=== PATIENT | male | born 1970 | race Two or more races ===

== ENCOUNTER 2016-10-30 06:30 | Emergency (ER) | payer OTHER ==
[~2016-10-30] VITALS: Ht 190.5 cm; Wt 104.3 kg
[~2016-10-30 06:30] MED LIST: AMOX500C2
[2016-10-30 06:45] VITALS: BP 135/87
[2016-10-30 08:03] LABS: Urine RBC None Seen /hpf (0 - 3)
[2016-10-30 08:12] LABS: Basophils # (auto) 0 uL; Basophils % (auto) 0.5 % (0.0-2.0); CONDITION Y; Eosinophils # (auto) 0.2 uL; Eosinophils % (auto) 3.5 % (0.0-7.0); Hemoglobin 14.8 g/dL (13.5-17.5); Lymphocytes # (auto) 1.5 uL; Lymphocytes % (auto) 29.9 % (10.0-50.0); Mean Corpuscular Hemoglobin 31.2 pg (28.0-32.0); Mean Corpuscular Hgb Conc. 34.4 g/dL (32.0-36.0); Mean Corpuscular Volume 90.8 fL (80.0-100.0); Mean Platelet Volume 9.2 fL (7.4-10.4); Monocytes # (auto) 0.6 uL; Monocytes % (auto) 11.5 % (0.0-12.0); Neutrophils # (auto) 2.8 uL; Neutrophils % (auto) 54.6 % (37.0-80.0); Platelet Count (auto) 208 10^3/uL (140-450); Red Cell Distribution Width 13.1 % (11.6-16.0); White Blood Cell 5.2 10^3/uL (4.4-10.8)
[2016-10-30 08:15] LABS: Urine Bilirubin Negative (Negative); Urine Blood Negative /uL (Negative); Urine Color Yellow (Yellow); Urine Glucose Normal (Normal); Urine Ketone Negative (Negative); Urine Nitrite Negative (Negative); Urine Urobilinogen Normal (Negative)
[2016-10-30 08:26] LABS: Albumin 3.7 g/dL (3.4-5.0); Calcium 8.1 mg/dL (8.5-10.1); Potassium 3.8 mmol/L (3.5-5.1)
[2016-10-30 08:29] LABS: Bilirubin, Total 0.7 mg/dL (0.2-1.0); Total Protein 7.6 g/dL (6.4-8.2)
== END 2016-10-30 09:18 | disposition home or self-care (01) ==
LOC: ER 06:30
DX: J11.1 Influenza due to unidentified influenza virus with other respiratory manifestations (principal); I25.10 Atherosclerotic heart disease of native coronary artery without angina pectoris; Z86.19 Personal history of other infectious and parasitic diseases
CPT/HCPCS: 36415; 80053; 80307; 81001; 85025; 93005

== ENCOUNTER 2019-11-19 23:05 | Inpatient (IN) | payer OTHER ==
[~2019-11-19] VITALS: Ht 190.5 cm; Wt 95.2 kg
[2019-11-19 23:47] LABS: Basophils # (auto) 0 10 ^3/uL (0-0.2); Basophils % (auto) 0.5 % (0.0-2.0); Eosinophils # (auto) 0.2 10 ^3/uL (0-0.8); Hemoglobin 14.4 g/dL (13.5-17.5); Lymphocytes # (auto) 1.5 10 ^3/uL (0.4-5.4); Lymphocytes % (auto) 27.7 % (10.0-50.0); Mean Corpuscular Hemoglobin 29.3 pg (28.0-32.0); Mean Corpuscular Hgb Conc. 34.4 g/dL (32.0-36.0); Mean Corpuscular Volume 85.1 fL (80.0-100.0); Monocytes # (auto) 0.6 10 ^3/uL (0-1.3); Monocytes % (auto) 10.8 % (0.0-12.0); Neutrophils # (auto) 3.1 10 ^3/uL (1.6-8.6); Nucleated Red Blood Cells % 0.1 %; Platelet Count (auto) 207 10^3/uL (140-450); Red Blood Cells 4.93 10^6/uL (4.5-5.90); Red Cell Distribution Width 13.6 % (11.8-14.3); White Blood Cell 5.4 10^3/uL (4.4-10.8)
[2019-11-20 00:05] LABS: Anion Gap 5 (5-15); Blood Urea Nitrogen 10 mg/dL (7-18); Calcium 8.3 mg/dL (8.5-10.1); Carbon Dioxide 29 mmol/L (21-32); Chloride 102 mmol/L (98-107); Glucose 96 mg/dL (74-106); Potassium 3.8 mmol/L (3.5-5.1); Sodium 136 mmol/L (136-145)
[2019-11-20 00:11] LABS: Alanine Aminotransferase 57 U/L (16-61); Alkaline Phosphatase 64 U/L (45-117); Aspartate Aminotransferase 30 U/L (15-37); BUN/Creatinine Ratio 12.2; Bilirubin, Total 0.7 mg/dL (0.2-1.0); GFR African American 128 mL/min; GFR Non-African American 106 mL/min; Total Protein 7.3 g/dL (6.4-8.2)
[2019-11-20 00:19] LABS: INR 1.15 (0.9-1.15); Partial Thromboplastin Time 30.2 sec (23.0-31.2)
[2019-11-20] MEDS ORDERED: SODIUM CHLORIDE 0.9% 1,000 ML IV ONE (01:00)
[2019-11-20] MEDS ORDERED: MORPHINE SULF INJ 2 MG/ML SYRINGE 1ML IV PRN (07:30)
[2019-11-20] MEDS ORDERED: NITROGLYCERIN 0.4 MG SL TAB SL PRN (07:30)
[2019-11-20] MEDS ORDERED: TEMAZEPAM 15 MG CAP PO PRN (07:30)
[2019-11-20 09:03] LABS: Alcohol, Urine < 3.0 mg/dL (0-10); Amphetamine Screen, Urine NEGATIVE (NEGATIVE); Barbiturate Scree,Urine NEGATIVE (NEGATIVE); Benzodiazephine Screen, Urine NEGATIVE (NEGATIVE); Cannabinoid Screen, Urine NEGATIVE (NEGATIVE)
[2019-11-20 10:17] VITALS: BP 107/80
[2019-11-20] MEDS: FAMOTIDINE 20 MG TAB PO SCH ×2 (10:23→21:09)
[2019-11-20] MEDS: ENOXAPARIN SOD 40 MG/0.4 ML SYRINGE SC SCH (10:23)
[2019-11-20] MEDS: ASPirin 81 mg TAB PO SCH (10:23)
[2019-11-20 10:40] VITALS: BP 107/80
[2019-11-20 12:03] LABS: Cocaine Screen, Urine NEGATIVE (NEGATIVE); Opiate Scree,Urine NEGATIVE (NEGATIVE); Phencyclidine Screen, Urine NEGATIVE (NEGATIVE)
[2019-11-20 13:46] VITALS: BP 125/86
[2019-11-20] MEDS: cloNIDine HCL 0.1 MG TAB PO PRN ×2 (16:18→17:50)
[2019-11-20 16:39] VITALS: BP 161/96
[2019-11-20 21:00] VITALS: BP 128/81
[2019-11-20] MEDS: ATORVASTATIN 20 MG TAB PO SCH (21:09)
[2019-11-21 05:00] VITALS: BP 122/74
[2019-11-21 06:51] LABS: Basophils # (auto) 0 10 ^3/uL (0-0.2); Basophils % (auto) 0.5 % (0.0-2.0); Eosinophils # (auto) 0.1 10 ^3/uL (0-0.8); Eosinophils % (auto) 2.2 % (0.0-7.0); Hematocrit 45.3 % (41.0-53.0); Hemoglobin 16.4 g/dL (13.5-17.5); Lymphocytes % (auto) 21.8 % (10.0-50.0); Mean Corpuscular Hemoglobin 30.8 pg (28.0-32.0); Mean Corpuscular Hgb Conc. 36.2 g/dL (32.0-36.0); Mean Corpuscular Volume 85.2 fL (80.0-100.0); Monocytes # (auto) 0.4 10 ^3/uL (0-1.3); Monocytes % (auto) 9.7 % (0.0-12.0); Neutrophils # (auto) 2.9 10 ^3/uL (1.6-8.6); Neutrophils % (auto) 65.8 % (37.0-80.0); Platelet Count (auto) 202 10^3/uL (140-450); Red Blood Cells 5.32 10^6/uL (4.5-5.90); Red Cell Distribution Width 13.5 % (11.8-14.3); White Blood Cell 4.4 10^3/uL (4.4-10.8)
[2019-11-21 07:04] LABS: BUN/Creatinine Ratio 10.6; Calcium 9.3 mg/dL (8.5-10.1); Potassium 4.2 mmol/L (3.5-5.1)
[2019-11-21] MEDS ORDERED: ADENOSINE 93 MG in GIVE UN-DILUTED 0 ML IV STA (08:19)
[2019-11-21 09:00] VITALS: BP 145/77
[2019-11-21] MEDS: ACETAMINOPHEN 325 MG TAB PO PRN (10:12)
[2019-11-21] MEDS: ASPirin 81 mg TAB PO SCH (11:16)
[2019-11-21] MEDS: FAMOTIDINE 20 MG TAB PO SCH ×2 (11:16→20:36)
[2019-11-21] MEDS: ENOXAPARIN SOD 40 MG/0.4 ML SYRINGE SC SCH (11:17)
[2019-11-21 13:00] VITALS: BP 136/91
[2019-11-21] MEDS ORDERED: LISINOPRIL 10 MG TAB PO ONE ×2 (13:15→16:45)
[2019-11-21 16:42] VITALS: BP 157/98
[2019-11-21] MEDS: ATORVASTATIN 20 MG TAB PO SCH (20:36)
[2019-11-21 21:00] VITALS: BP 133/86
[2019-11-22 05:00] VITALS: BP 108/65
[2019-11-22 06:23] LABS: Cholesterol 96 mg/dL (< 200); HDL Cholesterol 31 mg/dL (40-59); LDL Cholesterol 59 mg/dL (< 100); Triglycerides 114 mg/dL (< 150)
[2019-11-22 09:00] VITALS: BP 115/68
[2019-11-22] MEDS ORDERED: LISINOPRIL 10 MG TAB PO SCH (10:00)
[2019-11-22] MEDS: ENOXAPARIN SOD 40 MG/0.4 ML SYRINGE SC SCH (10:00)
[2019-11-22] MEDS: FAMOTIDINE 20 MG TAB PO SCH ×2 (10:00→22:22)
[2019-11-22] MEDS: ASPirin 81 mg TAB PO SCH (10:00)
[2019-11-22] MEDS: LISINOPRIL 10 MG TAB PO SCH (10:01)
[2019-11-22 13:00] VITALS: BP 138/90
[2019-11-22] MEDS: ACETAMINOPHEN 325 MG TAB PO PRN ×2 (14:11→22:31)
[2019-11-22] MEDS ORDERED: cefTRIAXone 1GM/50ML D5W 50 ML IV ONE (14:45)
[2019-11-22] MEDS ORDERED: VANCOMYCIN PER PHARMACY 0 MG IV SCH (14:45)
[2019-11-22] MEDS ORDERED: VANCOMYCIN 1GM/250ML 250 ML IV ONE (15:30)
[2019-11-22] MEDS ORDERED: KETOROLAC TROMETH 30 MG/ML 1ML VIAL IV ONE (16:30)
[2019-11-22 16:35] VITALS: BP 119/75
[2019-11-22] MEDS: ONDANSETRON HCL 4 MG/2 ML VIAL IV PRN (20:49)
[2019-11-22 22:00] VITALS: BP 102/56
[2019-11-22] MEDS ORDERED: DexAMETHasone INJECTION 10 MG in D5W 5% 50 ML IV SCH (22:00)
[2019-11-22] MEDS: SODIUM CHLORIDE 0.9% 1,000 ML IV SCH (22:22)
[2019-11-22] MEDS: ATORVASTATIN 20 MG TAB PO SCH (22:22)
[2019-11-22] MEDS: VANCOMYCIN 1GM/250ML 250 ML IV SCH (22:23)
[2019-11-22] MEDS: METOCLOPRAMIDE HCL 10 MG TAB PO SCH (22:23)
[2019-11-23 01:09] LABS: INR 6.71 (0.9-1.15)
[2019-11-23] MEDS: VANCOMYCIN 1GM/250ML 250 ML IV SCH (04:50)
[2019-11-23 05:00] VITALS: BP 125/83
[2019-11-23 06:23] LABS: Basophils # (auto) 0.1 10 ^3/uL (0-0.2); Basophils % (auto) 0.6 % (0.0-2.0); Eosinophils # (auto) 0 10 ^3/uL (0-0.8); Hematocrit 45.3 % (41.0-53.0); Hemoglobin 16.6 g/dL (13.5-17.5); Lymphocytes # (auto) 0.2 10 ^3/uL (0.4-5.4); Lymphocytes % (auto) 2.2 % (10.0-50.0); Mean Corpuscular Hemoglobin 31.2 pg (28.0-32.0); Mean Corpuscular Hgb Conc. 36.7 g/dL (32.0-36.0); Mean Corpuscular Volume 84.8 fL (80.0-100.0); Monocytes # (auto) 0.5 10 ^3/uL (0-1.3); Neutrophils # (auto) 9.2 10 ^3/uL (1.6-8.6); Neutrophils % (auto) 92.2 % (37.0-80.0); Platelet Count (auto) 154 10^3/uL (140-450); Red Blood Cells 5.34 10^6/uL (4.5-5.90); Red Cell Distribution Width 13.5 % (11.8-14.3)
[2019-11-23] MEDS: METOCLOPRAMIDE HCL 10 MG TAB PO SCH ×2 (06:37→13:41)
[2019-11-23] MEDS: SODIUM CHLORIDE 0.9% 1,000 ML IV SCH ×2 (06:37→14:58)
[2019-11-23] MEDS: ACETAMINOPHEN 325 MG TAB PO PRN ×2 (06:38→13:51)
[2019-11-23 06:43] LABS: Potassium 3.7 mmol/L (3.5-5.1)
[2019-11-23 06:52] LABS: Albumin 4.1 g/dL (3.4-5.0); BUN/Creatinine Ratio 11.4; Bilirubin, Total 2.5 mg/dL (0.2-1.0); Calcium 8.4 mg/dL (8.5-10.1); Total Protein 7.7 g/dL (6.4-8.2)
[2019-11-23 09:00] VITALS: BP 109/53
[2019-11-23] MEDS ORDERED: traMADol HCL 50 MG TAB PO PRN ×2 (09:00→17:30)
[2019-11-23] MEDS ORDERED: cefTRIAXone 1GM/50ML D5W 50 ML IV SCH (09:00)
[2019-11-23] MEDS: FAMOTIDINE 20 MG TAB PO SCH ×2 (09:56→22:19)
[2019-11-23] MEDS: LISINOPRIL 10 MG TAB PO SCH (09:56)
[2019-11-23] MEDS: ASPirin 81 mg TAB PO SCH (09:56)
[2019-11-23] MEDS ORDERED: PHYTONADIONE(VitK) ORAL Susp 10mg/10ml(1mg/ml) PO ONE (10:45)
[2019-11-23 10:58] LABS: CRP High Sensitivity 5.81 mg/dL (< 0.3)
[2019-11-23 11:16] LABS: Urine Bacteria FEW /hpf (None Seen); Urine Blood Negative /uL (Negative); Urine Specific Gravity 1.023 (1.001-1.035); Urine WBC 8 /hpf (0 - 3)
[2019-11-23 12:28] LABS: INR 1.27 (0.9-1.15); Partial Thromboplastin Time 27.5 sec (23.0-31.2)
[2019-11-23 13:00] VITALS: BP 134/73
[2019-11-23 17:00] VITALS: BP 138/59
[2019-11-23] MEDS ORDERED: KETOROLAC TROMETH 30 MG/ML 1ML VIAL IV ONE (17:15)
[2019-11-23] MEDS ORDERED: OXYCODONE W/ ACETAMINOPHEN 5/325MG TABLET PO PRN (17:15)
[2019-11-23] MEDS: LINEZOLID 600MG/300ML 300 ML IV SCH (17:29)
[2019-11-23 18:23] LABS: Albumin 3.4 g/dL (3.4-5.0); Calcium 7.5 mg/dL (8.5-10.1); Potassium 3.4 mmol/L (3.5-5.1)
[2019-11-23 18:27] LABS: BUN/Creatinine Ratio 11.3; Bilirubin, Total 1.5 mg/dL (0.2-1.0); Total Protein 6.6 g/dL (6.4-8.2)
[2019-11-23] MEDS: PANTOPRAZOLE 40 MG/10 ML VIAL INJ IV SCH (20:01)
[2019-11-23] MEDS: MEROPENEM 1GM IVPB 100 ML IV SCH (20:01)
[2019-11-23] MEDS: ONDANSETRON HCL 4 MG/2 ML VIAL IV PRN (20:14)
[2019-11-23 22:00] VITALS: BP 102/62
[2019-11-23] MEDS: ATORVASTATIN 20 MG TAB PO SCH (22:19)
[2019-11-23] MEDS: METOCLOPRAMIDE HCL 5MG/ml INJ 2ml VIAL IV SCH (22:19)
[2019-11-24] MEDS: SODIUM CHLORIDE 0.9% 1,000 ML IV SCH ×3 (01:45→20:45)
[2019-11-24 05:00] VITALS: BP 122/68
[2019-11-24] MEDS: LINEZOLID 600MG/300ML 300 ML IV SCH ×2 (05:43→17:36)
[2019-11-24] MEDS: METOCLOPRAMIDE HCL 5MG/ml INJ 2ml VIAL IV SCH ×3 (05:43→21:57)
[2019-11-24 08:00] VITALS: BP 127/72
[2019-11-24] MEDS: MEROPENEM 1GM IVPB 100 ML IV SCH ×2 (09:51→19:42)
[2019-11-24] MEDS: PANTOPRAZOLE 40 MG/10 ML VIAL INJ IV SCH (09:52)
[2019-11-24] MEDS: FAMOTIDINE 20 MG TAB PO SCH ×2 (09:52→22:00)
[2019-11-24] MEDS: ASPirin 81 mg TAB PO SCH (09:53)
[2019-11-24] MEDS: LISINOPRIL 10 MG TAB PO SCH (09:53)
[2019-11-24 12:46] VITALS: BP 142/71
[2019-11-24] MEDS ORDERED: SODIUM CHLORIDE 0.9% 1,000 ML IV SCH (14:30)
[2019-11-24] MEDS ORDERED: LACTULOSE 20Gm/30ML SOLN PO PRN (14:45)
[2019-11-24 16:45] VITALS: BP 123/66
[2019-11-24 21:03] LABS: INR 1.12 (0.9-1.15)
[2019-11-24 22:00] VITALS: BP 136/74
[2019-11-24] MEDS: DOCUSATE SOD 100 MG CAP PO SCH (22:00)
[2019-11-24] MEDS ORDERED: DexAMETHasone INJECTION 10 MG in D5W 5% 50 ML IV ONE (23:00)
[2019-11-24] MEDS ORDERED: DexAMETHasone SOD PHOS 4 MG/1ML SDV INJ ONE (23:16)
[2019-11-25 05:00] VITALS: BP 134/82
[2019-11-25] MEDS: SODIUM CHLORIDE 0.9% 1,000 ML IV SCH ×2 (05:27→14:07)
[2019-11-25] MEDS: LINEZOLID 600MG/300ML 300 ML IV SCH ×2 (05:27→17:40)
[2019-11-25 06:34] LABS: Basophils # (auto) 0 10 ^3/uL (0-0.2); Eosinophils # (auto) 0 10 ^3/uL (0-0.8); Lymphocytes # (auto) 0.6 10 ^3/uL (0.4-5.4); Monocytes # (auto) 0.3 10 ^3/uL (0-1.3); Platelet Count (auto) 142 10^3/uL (140-450)
[2019-11-25 06:36] LABS: Basophils % (auto) 0.1 % (0.0-2.0); Hematocrit 39.4 % (41.0-53.0); Hemoglobin 14.5 g/dL (13.5-17.5); Lymphocytes % (auto) 11.8 % (10.0-50.0); Mean Corpuscular Hemoglobin 30.8 pg (28.0-32.0); Mean Corpuscular Hgb Conc. 36.9 g/dL (32.0-36.0); Mean Corpuscular Volume 83.3 fL (80.0-100.0); Monocytes % (auto) 5.3 % (0.0-12.0); Neutrophils # (auto) 4.3 10 ^3/uL (1.6-8.6); Neutrophils % (auto) 82.8 % (37.0-80.0); Red Blood Cells 4.72 10^6/uL (4.5-5.90); Red Cell Distribution Width 13.6 % (11.8-14.3); White Blood Cell 5.2 10^3/uL (4.4-10.8)
[2019-11-25] MEDS: METOCLOPRAMIDE HCL 5MG/ml INJ 2ml VIAL IV SCH ×3 (06:37→22:17)
[2019-11-25 06:54] LABS: Calcium 8.7 mg/dL (8.5-10.1)
[2019-11-25 06:58] LABS: Albumin 3.7 g/dL (3.4-5.0); BUN/Creatinine Ratio 8.3; Bilirubin, Total 0.9 mg/dL (0.2-1.0); Magnesium 1.9 mg/dL (1.6-2.6); Total Protein 7.3 g/dL (6.4-8.2)
[2019-11-25] MEDS: MEROPENEM 1GM IVPB 100 ML IV SCH (08:08)
[2019-11-25 08:10] VITALS: BP 132/84
[2019-11-25 08:59] VITALS: BP 132/84
[2019-11-25] MEDS ORDERED: cefTRIAXone 1GM/50ML D5W 50 ML IV ONE (09:51)
[2019-11-25] MEDS: CEFTRIAXONE SODIUM 2 GM in D5W 5% 50 ML IV SCH ×2 (09:56→20:45)
[2019-11-25] MEDS: PANTOPRAZOLE 40 MG/10 ML VIAL INJ IV SCH (09:56)
[2019-11-25] MEDS: FAMOTIDINE 20 MG TAB PO SCH ×2 (12:10→22:16)
[2019-11-25] MEDS: ASPirin 81 mg TAB PO SCH (12:10)
[2019-11-25] MEDS: DOCUSATE SOD 100 MG CAP PO SCH ×2 (12:10→22:17)
[2019-11-25] MEDS: DexAMETHasone INJECTION 10 MG in D5W 5% 50 ML IV SCH (12:12)
[2019-11-25] MEDS: amLODIPine BESYLATE 5 MG TAB PO SCH (12:12)
[2019-11-25 13:07] VITALS: BP 131/81
[2019-11-25 16:46] VITALS: BP 132/77
[2019-11-25] MEDS: ACETAMINOPHEN 325 MG TAB PO PRN (20:46)
[2019-11-25 21:28] VITALS: BP 128/75
[2019-11-26] VITALS (7 sets, daily range): BP systolic 113–136; BP diastolic 69–78
[2019-11-26] MEDS: SODIUM CHLORIDE 0.9% 1,000 ML IV SCH ×2 (05:55→22:28)
[2019-11-26] MEDS: LINEZOLID 600MG/300ML 300 ML IV SCH (06:47)
[2019-11-26] MEDS: METOCLOPRAMIDE HCL 5MG/ml INJ 2ml VIAL IV SCH ×3 (06:47→22:27)
[2019-11-26] MEDS: CEFTRIAXONE SODIUM 2 GM in D5W 5% 50 ML IV SCH ×2 (08:21→20:30)
[2019-11-26] MEDS: FAMOTIDINE 20 MG TAB PO SCH ×2 (09:51→22:27)
[2019-11-26] MEDS: DOCUSATE SOD 100 MG CAP PO SCH ×2 (09:51→22:27)
[2019-11-26] MEDS: ASPirin 81 mg TAB PO SCH (09:51)
[2019-11-26] MEDS: amLODIPine BESYLATE 5 MG TAB PO SCH (09:51)
[2019-11-26] MEDS: PANTOPRAZOLE 40 MG/10 ML VIAL INJ IV SCH (09:52)
[2019-11-26] MEDS: DexAMETHasone INJECTION 10 MG in D5W 5% 50 ML IV SCH (11:09)
[2019-11-26] MEDS: DOXYCYCLINE 100MG/250ML 250 ML IV SCH (16:42)
[2019-11-27] VITALS (8 sets, daily range): BP systolic 92–138; BP diastolic 49–82
[2019-11-27] MEDS: DOXYCYCLINE 100MG/250ML 250 ML IV SCH ×2 (02:42→14:30)
[2019-11-27] MEDS: METOCLOPRAMIDE HCL 5MG/ml INJ 2ml VIAL IV SCH ×3 (06:28→21:39)
[2019-11-27] MEDS: CEFTRIAXONE SODIUM 2 GM in D5W 5% 50 ML IV SCH ×2 (08:43→20:28)
[2019-11-27] MEDS ORDERED: LIDOCAINE 2%HCL (LOCAL ANESTH.) INJ 20ML MDV ONE (09:54)
[2019-11-27] MEDS: DOCUSATE SOD 100 MG CAP PO SCH ×2 (10:00→21:40)
[2019-11-27] MEDS: ASPirin 81 mg TAB PO SCH (10:00)
[2019-11-27] MEDS: amLODIPine BESYLATE 5 MG TAB PO SCH (10:11)
[2019-11-27] MEDS: FAMOTIDINE 20 MG TAB PO SCH ×2 (10:11→21:33)
[2019-11-27] MEDS: PANTOPRAZOLE 40 MG/10 ML VIAL INJ IV SCH (10:12)
[2019-11-27] MEDS: DexAMETHasone INJECTION 10 MG in D5W 5% 50 ML IV SCH (13:31)
[2019-11-27] MEDS: SODIUM CHLORIDE 0.9% 1,000 ML IV SCH (15:15)
[2019-11-27] MEDS ORDERED: VANCOMYCIN PER PHARMACY 0 MG IV SCH (16:15)
[2019-11-27] MEDS: VANCOMYCIN 1GM/250ML 250 ML IV SCH (19:24)
[2019-11-28] MEDS: VANCOMYCIN 1GM/250ML 250 ML IV SCH (02:41)
[2019-11-28 05:00] VITALS: BP 121/74
[2019-11-28] MEDS: METOCLOPRAMIDE HCL 5MG/ml INJ 2ml VIAL IV SCH ×2 (05:23→14:00)
[2019-11-28 07:16] LABS: Basophils # (auto) 0 10 ^3/uL (0-0.2); Basophils % (auto) 0.2 % (0.0-2.0); Eosinophils # (auto) 0 10 ^3/uL (0-0.8); Eosinophils % (auto) 0.2 % (0.0-7.0); Hematocrit 40.5 % (41.0-53.0); Hemoglobin 14.7 g/dL (13.5-17.5); Lymphocytes # (auto) 1.1 10 ^3/uL (0.4-5.4); Mean Corpuscular Hemoglobin 30.7 pg (28.0-32.0); Mean Corpuscular Hgb Conc. 36.4 g/dL (32.0-36.0); Mean Corpuscular Volume 84.3 fL (80.0-100.0); Monocytes # (auto) 0.8 10 ^3/uL (0-1.3); Monocytes % (auto) 11.7 % (0.0-12.0); Neutrophils # (auto) 5.2 10 ^3/uL (1.6-8.6); Neutrophils % (auto) 72.9 % (37.0-80.0); Nucleated Red Blood Cells % 0.1 %; Platelet Count (auto) 226 10^3/uL (140-450); Red Cell Distribution Width 13.5 % (11.8-14.3); White Blood Cell 7.1 10^3/uL (4.4-10.8)
[2019-11-28 07:48] LABS: Potassium 3.5 mmol/L (3.5-5.1)
[2019-11-28 07:58] LABS: Albumin 3.7 g/dL (3.4-5.0); BUN/Creatinine Ratio 15.1; Bilirubin, Total 0.8 mg/dL (0.2-1.0); Calcium 8.5 mg/dL (8.5-10.1); Total Protein 7.4 g/dL (6.4-8.2)
[2019-11-28 08:00] VITALS: BP 139/86
[2019-11-28 09:00] VITALS: BP 139/86
[2019-11-28] MEDS: DOXYCYCLINE 100 MG TAB/CAP PO SCH ×2 (10:00→21:52)
[2019-11-28] MEDS: DOCUSATE SOD 100 MG CAP PO SCH ×2 (10:00→21:52)
[2019-11-28] MEDS: FAMOTIDINE 20 MG TAB PO SCH ×2 (11:29→21:52)
[2019-11-28] MEDS: ASPirin 81 mg TAB PO SCH (11:29)
[2019-11-28] MEDS: amLODIPine BESYLATE 5 MG TAB PO SCH (11:30)
[2019-11-28 13:00] VITALS: BP 132/84
[2019-11-28] MEDS ORDERED: AMLO10TA13 PO (14:18)
[2019-11-28] MEDS: CEFTRIAXONE SODIUM 2 GM in D5W 5% 50 ML IV SCH ×2 (14:18→21:52)
[2019-11-28] MEDS ORDERED: DOX100T PO (14:18)
[2019-11-28 16:42] VITALS: BP 128/74
[2019-11-28 22:00] VITALS: BP 138/83
[2019-11-28] MEDS: ACETAMINOPHEN 325 MG TAB PO PRN (22:55)
[2019-11-29 05:00] VITALS: BP 114/71
[2019-11-29 06:32] LABS: Basophils # (auto) 0 10 ^3/uL (0-0.2); Basophils % (auto) 0.1 % (0.0-2.0); Eosinophils # (auto) 0 10 ^3/uL (0-0.8); Eosinophils % (auto) 0.1 % (0.0-7.0); Hematocrit 41.4 % (41.0-53.0); Hemoglobin 15.3 g/dL (13.5-17.5); Mean Corpuscular Hgb Conc. 36.9 g/dL (32.0-36.0); Monocytes # (auto) 0.7 10 ^3/uL (0-1.3)
[2019-11-29 06:34] LABS: Lymphocytes % (auto) 11.8 % (10.0-50.0); Mean Corpuscular Hemoglobin 30.8 pg (28.0-32.0); Mean Corpuscular Volume 83.6 fL (80.0-100.0); Monocytes % (auto) 7.6 % (0.0-12.0); Neutrophils # (auto) 7.1 10 ^3/uL (1.6-8.6); Neutrophils % (auto) 80.4 % (37.0-80.0); Nucleated Red Blood Cells % 0.1 %; Platelet Count (auto) 258 10^3/uL (140-450); Red Blood Cells 4.95 10^6/uL (4.5-5.90); Red Cell Distribution Width 13.1 % (11.8-14.3); White Blood Cell 8.8 10^3/uL (4.4-10.8)
[2019-11-29 06:51] LABS: Calcium 8.5 mg/dL (8.5-10.1); Potassium 4.2 mmol/L (3.5-5.1)
[2019-11-29 06:56] LABS: Albumin 3.7 g/dL (3.4-5.0); BUN/Creatinine Ratio 15.7; Bilirubin, Total 0.6 mg/dL (0.2-1.0); Total Protein 7.6 g/dL (6.4-8.2)
[2019-11-29 09:00] VITALS: BP 126/79
[2019-11-29] MEDS: DOCUSATE SOD 100 MG CAP PO SCH ×2 (10:00→21:58)
[2019-11-29] MEDS: amLODIPine BESYLATE 5 MG TAB PO SCH (10:33)
[2019-11-29] MEDS: DOXYCYCLINE 100 MG TAB/CAP PO SCH ×2 (10:34→21:57)
[2019-11-29] MEDS: FAMOTIDINE 20 MG TAB PO SCH ×2 (10:34→21:57)
[2019-11-29 13:00] VITALS: BP 122/84
[2019-11-29] MEDS: CEFTRIAXONE SODIUM 2 GM in D5W 5% 50 ML IV SCH (16:00)
[2019-11-29 17:00] VITALS: BP 133/83
[2019-11-29 22:00] VITALS: BP 133/78
[2019-11-30] MEDS: CEFTRIAXONE SODIUM 2 GM in D5W 5% 50 ML IV SCH ×2 (04:06→15:47)
[2019-11-30 05:00] VITALS: BP 128/72
[2019-11-30 06:39] LABS: Albumin 3.3 g/dL (3.4-5.0); Calcium 7.9 mg/dL (8.5-10.1); Potassium 3.4 mmol/L (3.5-5.1)
[2019-11-30 06:45] LABS: BUN/Creatinine Ratio 18.2; Bilirubin, Total 0.4 mg/dL (0.2-1.0); Total Protein 7.1 g/dL (6.4-8.2)
[2019-11-30 07:53] LABS: Hematocrit 40.5 % (41.0-53.0); Hemoglobin 14.5 g/dL (13.5-17.5); Mean Corpuscular Hemoglobin 30.5 pg (28.0-32.0); Mean Corpuscular Hgb Conc. 35.9 g/dL (32.0-36.0); Mean Corpuscular Volume 84.8 fL (80.0-100.0); Platelet Count (auto) 263 10^3/uL (140-450); Red Blood Cells 4.78 10^6/uL (4.5-5.90); Red Cell Distribution Width 13.3 % (11.8-14.3); White Blood Cell 7.9 10^3/uL (4.4-10.8)
[2019-11-30 08:00] LABS: Basophils % (manual) 0 (0.0-2.0); Blast Cells 0; Promyelocytes % 0; Reactive Lymphocytes 0
[2019-11-30 08:25] VITALS: BP 124/70
[2019-11-30 09:09] LABS: Band Neutrophils % (manual) 5; Eosinophils % (manual) 2 (0-7); Lymphocytes % (manual) 24 (10.0-50.0); Metamyelocytes % 2; Monocytes % (manual) 8 (0-12); Myelocytes % 1
[2019-11-30] MEDS: DOCUSATE SOD 100 MG CAP PO SCH ×2 (10:00→21:51)
[2019-11-30] MEDS: FAMOTIDINE 20 MG TAB PO SCH ×2 (10:47→21:50)
[2019-11-30] MEDS: DOXYCYCLINE 100 MG TAB/CAP PO SCH ×2 (10:47→21:50)
[2019-11-30] MEDS: amLODIPine BESYLATE 5 MG TAB PO SCH (10:54)
[2019-11-30] MEDS ORDERED: POTASSIUM CHL 20 Meq TABLET PO ONE (12:00)
[2019-11-30 12:38] VITALS: BP 119/71
[2019-11-30 16:28] VITALS: BP 134/80
[2019-11-30 22:00] VITALS: BP 139/76
[2019-12-01] MEDS: CEFTRIAXONE SODIUM 2 GM in D5W 5% 50 ML IV SCH ×2 (03:46→16:55)
[2019-12-01 05:00] VITALS: BP 126/82
[2019-12-01 06:06] LABS: Basophils # (auto) 0 10 ^3/uL (0-0.2); Basophils % (auto) 0.5 % (0.0-2.0); Eosinophils # (auto) 0.3 10 ^3/uL (0-0.8); Eosinophils % (auto) 3.3 % (0.0-7.0); Hematocrit 41.3 % (41.0-53.0); Hemoglobin 15.1 g/dL (13.5-17.5); Lymphocytes # (auto) 2.1 10 ^3/uL (0.4-5.4); Lymphocytes % (auto) 26.1 % (10.0-50.0); Mean Corpuscular Hemoglobin 30.5 pg (28.0-32.0); Mean Corpuscular Hgb Conc. 36.5 g/dL (32.0-36.0); Mean Corpuscular Volume 83.8 fL (80.0-100.0); Monocytes % (auto) 11.9 % (0.0-12.0); Neutrophils # (auto) 4.7 10 ^3/uL (1.6-8.6); Neutrophils % (auto) 58.2 % (37.0-80.0); Nucleated Red Blood Cells % 0.1 %; Platelet Count (auto) 289 10^3/uL (140-450); Red Blood Cells 4.93 10^6/uL (4.5-5.90)
[2019-12-01 06:27] LABS: Calcium 8.5 mg/dL (8.5-10.1); Potassium 3.8 mmol/L (3.5-5.1)
[2019-12-01 06:33] LABS: Albumin 3.5 g/dL (3.4-5.0); BUN/Creatinine Ratio 15.6; Bilirubin, Total 0.6 mg/dL (0.2-1.0); Magnesium 1.9 mg/dL (1.6-2.6)
[2019-12-01 08:00] VITALS: BP 127/80
[2019-12-01] MEDS: DOXYCYCLINE 100 MG TAB/CAP PO SCH (09:54)
[2019-12-01] MEDS: FAMOTIDINE 20 MG TAB PO SCH (09:54)
[2019-12-01] MEDS: amLODIPine BESYLATE 5 MG TAB PO SCH (09:55)
[2019-12-01] MEDS: DOCUSATE SOD 100 MG CAP PO SCH (09:56)
[2019-12-01 12:00] VITALS: BP 132/80
[2019-12-01 15:21] VITALS: BP 132/80
[2019-12-01 16:42] VITALS: BP 136/79
[2019-12-01] MEDS: ACETAMINOPHEN 325 MG TAB PO PRN (19:28)
[2019-12-02 13:44] LABS: Hepatitis A Ab IgM Negative; Hepatitis B Core IgM Negative
[2019-12-02 13:47] LABS: Hepatitis B Surface Antigen Negative (Negative)
[2019-12-02 14:42] LABS: CSF White Blood Cells 2 CUMM (0-5)
== END 2019-12-01 14:07 | disposition home health service (06) | DRG 51 ==
LOC: EDBD 23:05 → ER 23:05 → TELE 23:06 → TELE-EAST 11-20 10:02 → TELE-WESTW 11-20 13:50 → TELE-EAST 11-22 20:00 → TELE-WESTW 11-24 11:22
PROVIDERS: ADMIT Nurse Practitioner; ATTEND Internal Medicine
PROC: 4B02XSZ Measurement of Cardiac Pacemaker, External Approach (ICD-10-PCS; 2019-11-21)
PROC: 009U3ZX Drainage of Spinal Canal, Percutaneous Approach, Diagnostic (ICD-10-PCS; principal; 2019-11-27)
PROC: B01B1ZZ Fluoroscopy of Spinal Cord using Low Osmolar Contrast (ICD-10-PCS; 2019-11-27)
DX: A87.9 Viral meningitis, unspecified (principal); N17.0 Acute kidney failure with tubular necrosis; Z95.0 Presence of cardiac pacemaker; Z86.19 Personal history of other infectious and parasitic diseases; E66.9 Obesity, unspecified; I25.10 Atherosclerotic heart disease of native coronary artery without angina pectoris; I10 Essential (primary) hypertension; F41.9 Anxiety disorder, unspecified; D68.59 Other primary thrombophilia; I25.2 Old myocardial infarction; E11.9 Type 2 diabetes mellitus without complications; E86.0 Dehydration; F17.200 Nicotine dependence, unspecified, uncomplicated; I49.9 Cardiac arrhythmia, unspecified; M48.061 Spinal stenosis, lumbar region without neurogenic claudication; Z20.828 Contact with and (suspected) exposure to other viral communicable diseases; Z80.1 Family history of malignant neoplasm of trachea, bronchus and lung; Z80.3 Family history of malignant neoplasm of breast; Z80.42 Family history of malignant neoplasm of prostate; Z80.8 Family history of malignant neoplasm of other organs or systems; Z81.8 Family history of other mental and behavioral disorders; Z82.0 Family history of epilepsy and other diseases of the nervous system; Z82.3 Family history of stroke; Z82.49 Family history of ischemic heart disease and other diseases of the circulatory system; Z82.5 Family history of asthma and other chronic lower respiratory diseases; Z82.62 Family history of osteoporosis; Z83.3 Family history of diabetes mellitus; R79.89 Other specified abnormal findings of blood chemistry; R94.6 Abnormal results of thyroid function studies; Z88.8 Allergy status to other drugs, medicaments and biological substances; G03.0 Nonpyogenic meningitis; I07.1 Rheumatic tricuspid insufficiency; Z68.30 Body mass index [BMI] 30.0-30.9, adult
CPT/HCPCS: 36415; 62272; 70450; 71045; 71250; 72131; 76705; 76775; 78226; 78452; 80048; 80053; 80061; 80074; 80307; 81001; 82042; 82164; 82728; 82784; 82945; 83036; 83615; 83735; 83880; 84157; 84443; 84484; 85007; 85025; 85027; 85379; 85610; 85652; 85730; 86141; 86703; 87040; 87070; 87077; 87086; 87186; 87205; 87426; 87529; 87804; 87899; 89051; 93005; 93017; 93306; 96360; C9113; G0378; J0153; J0696; J1100; J1885; J2185; J2405; J3490; J7060

== ENCOUNTER 2020-01-08 22:16 | Inpatient (IN) | payer OTHER ==
[~2020-01-08] VITALS: Ht 190.5 cm; Wt 109.3 kg
[~2020-01-08 22:16] MED LIST changes: +AMLO10TA13 PO; -AMOX500C2
[2020-01-08 23:25] LABS: Basophils # (auto) 0 10 ^3/uL (0-0.2); Basophils % (auto) 0.6 % (0.0-2.0); Eosinophils # (auto) 0.2 10 ^3/uL (0-0.8); Eosinophils % (auto) 2.1 % (0.0-7.0); Hematocrit 38.3 % (41.0-53.0); Hemoglobin 13.9 g/dL (13.5-17.5); Lymphocytes # (auto) 1.8 10 ^3/uL (0.4-5.4); Lymphocytes % (auto) 23.4 % (10.0-50.0); Mean Corpuscular Hemoglobin 30.5 pg (28.0-32.0); Mean Corpuscular Hgb Conc. 36.3 g/dL (32.0-36.0); Monocytes # (auto) 0.5 10 ^3/uL (0-1.3); Monocytes % (auto) 6.5 % (0.0-12.0); Neutrophils # (auto) 5.2 10 ^3/uL (1.6-8.6); Neutrophils % (auto) 67.4 % (37.0-80.0); Nucleated Red Blood Cells % 0.1 %; Platelet Count (auto) 234 10^3/uL (140-450); Red Blood Cells 4.56 10^6/uL (4.5-5.90); Red Cell Distribution Width 14.7 % (11.8-14.3); White Blood Cell 7.7 10^3/uL (4.4-10.8)
[2020-01-08 23:43] LABS: INR 1.03 (0.9-1.15); Partial Thromboplastin Time 28.5 sec (23.0-31.2)
[2020-01-08 23:48] LABS: Alanine Aminotransferase 38 U/L (16-61); Albumin 4.2 g/dL (3.4-5.0); Anion Gap 5 (5-15); Aspartate Aminotransferase 25 U/L (15-37); BUN/Creatinine Ratio 9.3; Blood Urea Nitrogen 8 mg/dL (7-18); Calcium 8.4 mg/dL (8.5-10.1); Carbon Dioxide 31 mmol/L (21-32); Chloride 102 mmol/L (98-107); GFR African American 122 mL/min; GFR Non-African American 100 mL/min; Glucose 95 mg/dL (74-106); Potassium 3.4 mmol/L (3.5-5.1); Sodium 138 mmol/L (136-145)
[2020-01-08 23:53] LABS: Alkaline Phosphatase 75 U/L (45-117); Total Protein 8.2 g/dL (6.4-8.2)
[2020-01-09 07:35] LABS: Urine WBC None Seen /hpf (0 - 3)
[2020-01-09 07:55] LABS: Urine Bacteria NONE SEEN /hpf (None Seen); Urine Blood Negative /uL (Negative); Urine Specific Gravity 1.002 (1.001-1.035)
[2020-01-09 07:58] LABS: Alcohol, Urine < 3.0 mg/dL (0-10); Amphetamine Screen, Urine NEGATIVE (NEGATIVE); Barbiturate Scree,Urine NEGATIVE (NEGATIVE); Benzodiazephine Screen, Urine NEGATIVE (NEGATIVE); Cannabinoid Screen, Urine NEGATIVE (NEGATIVE); Cocaine Screen, Urine NEGATIVE (NEGATIVE); Opiate Scree,Urine NEGATIVE (NEGATIVE); Phencyclidine Screen, Urine NEGATIVE (NEGATIVE)
[2020-01-09] MEDS ORDERED: ASPirin 81 mg TAB PO ONE (08:15)
[2020-01-09] MEDS ORDERED: MORPHINE SULF INJ 2 MG/ML SYRINGE 1ML IV PRN ×3 (09:45→15:15)
[2020-01-09] MEDS ORDERED: POTASSIUM CHL 20 Meq TABLET PO ONE (09:45)
[2020-01-09] MEDS ORDERED: NITROGLYCERIN 0.4 MG SL TAB SL PRN ×3 (09:45→15:15)
[2020-01-09] MEDS ORDERED: NITR0.4S29 SL (10:49)
[2020-01-09] MEDS ORDERED: PANT40TA2 PO (10:49)
[2020-01-09] MEDS ORDERED: CARV6.2551 PO (10:49)
[2020-01-09] MEDS ORDERED: ASPI1CHW5 PO (10:49)
[2020-01-09] MEDS ORDERED: MULT-1018 PO (10:49)
[2020-01-09 15:00] VITALS: BP 136/86
[2020-01-09] MEDS ORDERED: MORPHINE SULFATE 4 MG/ML SYR/VIAL IV PRN (15:15)
[2020-01-09] MEDS ORDERED: PANTOPRAZOLE 40 MG/10 ML VIAL INJ IV ONE (15:15)
[2020-01-09] MEDS ORDERED: ACETAMINOPHEN 325 MG TAB PO PRN (15:15)
[2020-01-09] MEDS ORDERED: ONDANSETRON HCL 4 MG/2 ML VIAL IV PRN ×2 (15:15)
[2020-01-09] MEDS ORDERED: HYDROcodone-ACET 5/325MG TAB PO PRN (15:15)
[2020-01-09] MEDS ORDERED: DOCUSATE SOD 100 MG CAP PO PRN (15:15)
[2020-01-09] MEDS ORDERED: ATORVASTATIN 20 MG TAB PO ONE (15:15)
[2020-01-09] MEDS ORDERED: MULTIPLE VITAMINS W/ MINERALS TAB PO ONE (15:15)
[2020-01-09] MEDS ORDERED: ALUM & MAG HYDROX-SIMETH LIQ(MAALOX) 30 ML PO ONE (15:15)
[2020-01-09] MEDS ORDERED: LORazepam 0.5 MG TAB PO PRN ×2 (15:15)
[2020-01-09] MEDS ORDERED: ALUM & MAG HYDROX-SIMETH LIQ(MAALOX) 30 ML PO PRN (15:15)
[2020-01-09 17:00] VITALS: BP 129/75
[2020-01-09 17:28] LABS: Cholesterol 125 mg/dL (< 200)
[2020-01-09 17:32] LABS: HDL Cholesterol 41 mg/dL (40-59); LDL Cholesterol 76 mg/dL (< 100); Triglycerides 65 mg/dL (< 150)
--- NOTE | 2020-01-09 18:36 | NUR ---
Telemetry admit from [facility] admitted to Telemetry unit after SBAR received. Patient oriented to OLGA SCHAEFFER RN primary RN, unit, room, bed, and unit policies regarding patient care and visiting hours. Patient now on continuous telemetry monitoring, tele box # [id number] and telemetry reading on arrival to unit is SR 69. Patient placed on bedside oxygen, weighed by bedscale and encouraged to call if they need something. All questions and concerns addressed, patient verbalized understanding.
[2020-01-09 21:00] VITALS: BP 131/85
[2020-01-09] MEDS ORDERED: CARVEDILOL 3.125 MG TAB PO SCH (22:00)
[2020-01-09] MEDS ORDERED: ATORVASTATIN 20 MG TAB PO SCH (22:00)
[2020-01-10 05:00] VITALS: BP 127/76
--- NOTE | 2020-01-10 07:00 | NUR ---
OPENING SHIFT NOTE RECEIVED REPORT ON THE PATIENT. AWAKE LYING IN BED. PATIENT SHOWS NO SIGNS OF DISTRESS AT THIS TIME. DISCUSSED THE PLAN OF CARE WITH THE PATIENT. BED IN LOWEST POSITION, SIDE RAILS UP X2, AND THE CALL LIGHT IS WITHIN REACH.
[2020-01-10 09:00] VITALS: BP 129/84
[2020-01-10] MEDS ORDERED: ASPirin 81 mg TAB PO SCH (10:00)
[2020-01-10] MEDS ORDERED: PANTOPRAZOLE 40 MG/10 ML VIAL INJ IV SCH (10:00)
[2020-01-10] MEDS ORDERED: predniSONE 20 MG TAB PO SCH (10:00)
[2020-01-10] MEDS ORDERED: LISINOPRIL 5 MG TAB PO SCH (10:00)
[2020-01-10] MEDS: MULTIPLE VITAMINS W/ MINERALS TAB PO SCH (10:11)
[2020-01-10] MEDS: ENOXAPARIN SOD 40 MG/0.4 ML SYRINGE SC SCH (10:12)
[2020-01-10 13:00] VITALS: BP 133/88
[2020-01-10 15:23] LABS: Urine Bacteria NONE SEEN /hpf (None Seen); Urine Blood Negative /uL (Negative); Urine Specific Gravity 1.009 (1.001-1.035); Urine WBC <1 /hpf (0 - 3)
[2020-01-10 15:40] LABS: Alcohol, Urine < 3.0 mg/dL (0-10); Amphetamine Screen, Urine NEGATIVE (NEGATIVE); Barbiturate Scree,Urine NEGATIVE (NEGATIVE); Benzodiazephine Screen, Urine NEGATIVE (NEGATIVE); Cannabinoid Screen, Urine NEGATIVE (NEGATIVE); Cocaine Screen, Urine NEGATIVE (NEGATIVE); Opiate Scree,Urine NEGATIVE (NEGATIVE); Phencyclidine Screen, Urine NEGATIVE (NEGATIVE)
[2020-01-10 16:43] VITALS: BP 136/81
--- NOTE | 2020-01-10 19:20 | NUR ---
Opening Shift Note Assumed care of patient, awake and alert. No S/S of distress/SOB or pain. Bed is locked in lowest position with call light within reach. Instructed on POC and to call for assist PRN, will continue to monitor for changes Q1hr and PRN.
[2020-01-10 22:00] VITALS: BP 131/83
[2020-01-10] MEDS: PANTOPRAZOLE 40 MG TAB PO SCH (22:00)
[2020-01-11 05:00] VITALS: BP 131/76
[2020-01-11 09:00] VITALS: BP 113/77
[2020-01-11] MEDS: ENOXAPARIN SOD 40 MG/0.4 ML SYRINGE SC SCH (10:17)
[2020-01-11] MEDS: PANTOPRAZOLE 40 MG TAB PO SCH (10:17)
[2020-01-11] MEDS: MULTIPLE VITAMINS W/ MINERALS TAB PO SCH (10:17)
[2020-01-11] MEDS ORDERED: AMLO10TA13 PO (11:11)
[2020-01-11] MEDS ORDERED: PANT40T PO (11:11)
[2020-01-11 12:33] VITALS: BP 113/88
[2020-01-11 13:00] VITALS: BP 130/98
== END 2020-01-11 15:25 | disposition home or self-care (01) | DRG 243 ==
LOC: ER 22:16 → TELE 22:17 → TELE-EAST 01-09 14:58
PROVIDERS: ADMIT Hospitalist; ATTEND Hospitalist
DX: K21.9 Gastro-esophageal reflux disease without esophagitis (principal); R07.89 Other chest pain; F41.9 Anxiety disorder, unspecified; I10 Essential (primary) hypertension; K29.70 Gastritis, unspecified, without bleeding; E66.9 Obesity, unspecified; E78.5 Hyperlipidemia, unspecified; E87.6 Hypokalemia; I25.10 Atherosclerotic heart disease of native coronary artery without angina pectoris; Z80.0 Family history of malignant neoplasm of digestive organs; Z80.1 Family history of malignant neoplasm of trachea, bronchus and lung; Z80.3 Family history of malignant neoplasm of breast; Z80.42 Family history of malignant neoplasm of prostate; Z80.8 Family history of malignant neoplasm of other organs or systems; Z81.8 Family history of other mental and behavioral disorders; Z82.0 Family history of epilepsy and other diseases of the nervous system; Z82.3 Family history of stroke; Z82.49 Family history of ischemic heart disease and other diseases of the circulatory system; Z82.5 Family history of asthma and other chronic lower respiratory diseases; Z82.62 Family history of osteoporosis; Z83.3 Family history of diabetes mellitus; Z91.81 History of falling; Z95.0 Presence of cardiac pacemaker; Z88.8 Allergy status to other drugs, medicaments and biological substances; Z68.30 Body mass index [BMI] 30.0-30.9, adult; Z86.19 Personal history of other infectious and parasitic diseases; Z86.79 Personal history of other diseases of the circulatory system
CPT/HCPCS: 36415; 71045; 80053; 80061; 80307; 81001; 83036; 83880; 84484; 85025; 85379; 85610; 85730; 87040; 87086; 93005; C9113; G0378

== ENCOUNTER 2020-06-12 16:05 | Inpatient (IN) | payer OTHER ==
[~2020-06-12] VITALS: Ht 190.5 cm; Wt 100.0 kg
[~2020-06-12 16:05] MED LIST changes: +AMLO-496 PO; -AMLO10TA13 PO; +ASPI1CHW5 PO; +MULT-1018 PO; +NITR0.4S29 SL; +PANT40T PO; +PANT40TA2 PO
[2020-06-12 17:07] LABS: Urine Bacteria NONE SEEN /hpf (None Seen); Urine Blood Negative /uL (Negative); Urine Specific Gravity 1.003 (1.001-1.035); Urine WBC <1 /hpf (0 - 3)
[2020-06-12 17:07] LABS: Albumin 4.1 g/dL (3.4-5.0); Calcium 8.5 mg/dL (8.5-10.1); Potassium 3.3 mmol/L (3.5-5.1)
[2020-06-12 17:10] LABS: Bilirubin, Total 0.8 mg/dL (0.2-1.0); Total Protein 7.4 g/dL (6.4-8.2)
[2020-06-12 17:30] LABS: Basophils # (auto) 0.1 10 ^3/uL (0-0.2); Basophils % (auto) 1.3 % (0.0-2.0); Eosinophils # (auto) 0.1 10 ^3/uL (0-0.8); Eosinophils % (auto) 2.4 % (0.0-7.0); Hematocrit 40.8 % (41.0-53.0); Hemoglobin 14.3 g/dL (13.5-17.5); Lymphocytes # (auto) 1.2 10 ^3/uL (0.4-5.4); Lymphocytes % (auto) 23.1 % (10.0-50.0); Mean Corpuscular Hemoglobin 29.5 pg (28.0-32.0); Mean Corpuscular Hgb Conc. 35.2 g/dL (32.0-36.0); Mean Corpuscular Volume 83.9 fL (80.0-100.0); Monocytes # (auto) 0.5 10 ^3/uL (0-1.3); Monocytes % (auto) 10.4 % (0.0-12.0); Neutrophils # (auto) 3.1 10 ^3/uL (1.6-8.6); Neutrophils % (auto) 62.8 % (37.0-80.0); Nucleated Red Blood Cells % 1.8 %; Platelet Count (auto) 209 10^3/uL (140-450); Red Blood Cells 4.86 10^6/uL (4.5-5.90); Red Cell Distribution Width 13.8 % (11.8-14.3)
[2020-06-12] MEDS ORDERED: ASPirin-EC 81 mg tab PO ONE (20:00)
[2020-06-12] MEDS ORDERED: POTASSIUM CHL 20 Meq TABLET PO ONE (20:00)
[2020-06-13] MEDS ORDERED: DOCUSATE SOD 100 MG CAP PO PRN (01:00)
[2020-06-13] MEDS ORDERED: ACETAMINOPHEN 325 MG TAB PO PRN (01:00)
[2020-06-13] MEDS ORDERED: ONDANSETRON HCL 4 MG/2 ML VIAL IV PRN (01:00)
[2020-06-13] MEDS ORDERED: MORPHINE SULFATE 4 MG/ML SYR/VIAL IV PRN (01:00)
[2020-06-13] MEDS ORDERED: HYDROcodone-ACET 5/325MG TAB PO PRN (01:00)
[2020-06-13] MEDS ORDERED: MORPHINE SULF INJ 2 MG/ML SYRINGE 1ML IV PRN (01:00)
[2020-06-13] MEDS ORDERED: NITROGLYCERIN 0.4 MG SL TAB SL PRN (01:00)
[2020-06-13 02:20] VITALS: BP 124/82
[2020-06-13 04:59] LABS: Basophils # (auto) 0 10 ^3/uL (0-0.2); Basophils % (auto) 0.5 % (0.0-2.0); Eosinophils # (auto) 0.2 10 ^3/uL (0-0.8); Eosinophils % (auto) 2.7 % (0.0-7.0); Hematocrit 41.1 % (41.0-53.0); Hemoglobin 14.9 g/dL (13.5-17.5); Lymphocytes # (auto) 1.9 10 ^3/uL (0.4-5.4); Mean Corpuscular Hemoglobin 30.4 pg (28.0-32.0); Mean Corpuscular Hgb Conc. 36.3 g/dL (32.0-36.0); Mean Corpuscular Volume 83.8 fL (80.0-100.0); Monocytes # (auto) 0.7 10 ^3/uL (0-1.3); Monocytes % (auto) 11.3 % (0.0-12.0); Neutrophils # (auto) 3.5 10 ^3/uL (1.6-8.6); Neutrophils % (auto) 55.5 % (37.0-80.0); Nucleated Red Blood Cells % 1.1 %; Platelet Count (auto) 206 10^3/uL (140-450); Red Cell Distribution Width 13.8 % (11.8-14.3); White Blood Cell 6.3 10^3/uL (4.4-10.8)
[2020-06-13 05:01] VITALS: BP 124/82
[2020-06-13 05:16] LABS: Albumin 3.8 g/dL (3.4-5.0); Calcium 8.4 mg/dL (8.5-10.1); Potassium 3.4 mmol/L (3.5-5.1)
[2020-06-13 05:20] LABS: BUN/Creatinine Ratio 18.9; Bilirubin, Total 0.8 mg/dL (0.2-1.0)
[2020-06-13 09:08] VITALS: BP 118/68
[2020-06-13] MEDS: ZINC SULFATE 220mg CAP or TAB PO SCH (09:46)
[2020-06-13] MEDS: MULTIPLE VITAMIN TAB PO SCH (09:46)
[2020-06-13] MEDS: ASPirin 81 mg TAB PO SCH (09:46)
[2020-06-13] MEDS: FAMOTIDINE 20 MG TAB PO SCH ×2 (09:48→22:26)
[2020-06-13] MEDS: ASCORBIC ACID 500 MG TAB PO SCH ×2 (09:49→22:26)
[2020-06-13] MEDS: ENOXAPARIN SOD 40 MG/0.4 ML SYRINGE SC SCH (09:49)
[2020-06-13 13:00] VITALS: BP 124/76
[2020-06-13] MEDS ORDERED: POTASSIUM CHL 20 Meq TABLET PO ONE (15:45)
[2020-06-13 17:07] VITALS: BP 127/73
[2020-06-13 22:00] VITALS: BP 117/72
[2020-06-14 05:00] VITALS: BP 130/81
[2020-06-14 07:09] LABS: Potassium 3.7 mmol/L (3.5-5.1)
[2020-06-14 07:19] LABS: Albumin 3.8 g/dL (3.4-5.0); BUN/Creatinine Ratio 18.3; Calcium 8.8 mg/dL (8.5-10.1); Total Protein 7.1 g/dL (6.4-8.2)
[2020-06-14 07:21] LABS: Basophils # (auto) 0 10 ^3/uL (0-0.2); Basophils % (auto) 0.5 % (0.0-2.0); Eosinophils # (auto) 0.2 10 ^3/uL (0-0.8); Eosinophils % (auto) 3.1 % (0.0-7.0); Hematocrit 42.2 % (41.0-53.0); Hemoglobin 15.2 g/dL (13.5-17.5); Lymphocytes # (auto) 1.7 10 ^3/uL (0.4-5.4); Lymphocytes % (auto) 29.1 % (10.0-50.0); Mean Corpuscular Hemoglobin 30.3 pg (28.0-32.0); Mean Corpuscular Hgb Conc. 36.1 g/dL (32.0-36.0); Mean Corpuscular Volume 84.1 fL (80.0-100.0); Monocytes # (auto) 0.6 10 ^3/uL (0-1.3); Monocytes % (auto) 10.9 % (0.0-12.0); Neutrophils # (auto) 3.3 10 ^3/uL (1.6-8.6); Neutrophils % (auto) 56.4 % (37.0-80.0); Nucleated Red Blood Cells % 0.1 %; Platelet Count (auto) 200 10^3/uL (140-450); Red Blood Cells 5.02 10^6/uL (4.5-5.90); Red Cell Distribution Width 13.8 % (11.8-14.3); White Blood Cell 5.8 10^3/uL (4.4-10.8)
[2020-06-14 09:00] VITALS: BP 134/77
[2020-06-14] MEDS ORDERED: MAGNESIUM SULFATE 1GM/100ML 100 ML IV ONE (09:15)
[2020-06-14] MEDS: MULTIPLE VITAMIN TAB PO SCH (10:01)
[2020-06-14] MEDS: ASPirin 81 mg TAB PO SCH (10:01)
[2020-06-14] MEDS: ENOXAPARIN SOD 40 MG/0.4 ML SYRINGE SC SCH (10:01)
[2020-06-14] MEDS: ZINC SULFATE 220mg CAP or TAB PO SCH (10:02)
[2020-06-14] MEDS: FAMOTIDINE 20 MG TAB PO SCH (10:02)
[2020-06-14] MEDS: ASCORBIC ACID 500 MG TAB PO SCH (10:02)
[2020-06-14] MEDS ORDERED: LORazepam 2MG/ML-1ML VIAL IV PRN (10:15)
[2020-06-14] MEDS ORDERED: ASPirin 81 mg TAB PO SCH (10:15)
[2020-06-14 11:04] LABS: Hepatitis B Surface Antibody Negative
[2020-06-14 11:28] LABS: Hepatitis A Total Antibody Negative
[2020-06-14 12:42] LABS: Hepatitis B Core Total AB Negative; Hepatitis B Surface Antigen Negative (Negative)
[2020-06-14 12:43] LABS: Hepatitis C Antibody Positive (Negative)
[2020-06-14 13:00] VITALS: BP 146/86
[2020-06-14 14:41] VITALS: BP 119/76
[2020-06-14 17:00] VITALS: BP 117/77
[2020-06-14] MEDS ORDERED: ATORVASTATIN 20 MG TAB PO SCH (22:00)
== END 2020-06-14 19:35 | disposition home or self-care (01) | DRG 47 ==
LOC: EDBD 16:05 → ER 16:06 → TELE 06-13 00:58 → TELE-EAST 06-13 02:20
PROVIDERS: ADMIT Nurse Practitioner Family; ATTEND Internal Medicine
DX: G45.9 Transient cerebral ischemic attack, unspecified (principal); B19.20 Unspecified viral hepatitis C without hepatic coma; E87.6 Hypokalemia; R07.89 Other chest pain; I44.30 Unspecified atrioventricular block; I10 Essential (primary) hypertension; F17.200 Nicotine dependence, unspecified, uncomplicated; I25.10 Atherosclerotic heart disease of native coronary artery without angina pectoris; I25.2 Old myocardial infarction; Z79.82 Long term (current) use of aspirin; Z79.899 Other long term (current) drug therapy; Z80.1 Family history of malignant neoplasm of trachea, bronchus and lung; Z80.3 Family history of malignant neoplasm of breast; Z80.42 Family history of malignant neoplasm of prostate; Z80.8 Family history of malignant neoplasm of other organs or systems; Z81.8 Family history of other mental and behavioral disorders; Z82.0 Family history of epilepsy and other diseases of the nervous system; Z82.3 Family history of stroke; Z82.49 Family history of ischemic heart disease and other diseases of the circulatory system; Z82.5 Family history of asthma and other chronic lower respiratory diseases; Z83.3 Family history of diabetes mellitus; Z82.62 Family history of osteoporosis; Z95.0 Presence of cardiac pacemaker; K21.9 Gastro-esophageal reflux disease without esophagitis; Z20.822 Contact with and (suspected) exposure to COVID-19; Z88.8 Allergy status to other drugs, medicaments and biological substances; Z86.19 Personal history of other infectious and parasitic diseases
CPT/HCPCS: 36415; 70450; 70551; 71045; 80053; 81001; 83735; 84484; 85025; 86704; 86706; 86708; 86803; 87340; 87426; 93005; 93886; G0378

== ENCOUNTER 2020-11-18 18:51 | Emergency (ER) | payer OTHER ==
[~2020-11-18] VITALS: Ht 190.5 cm; Wt 102.1 kg
[~2020-11-18 18:51] MED LIST changes: -PANT40T PO
[2020-11-18 20:00] VITALS: BP 141/99
== END 2020-11-18 20:30 | disposition home or self-care (01) ==
LOC: ER 18:51
DX: U07.1 COVID-19 (principal); R19.7 Diarrhea, unspecified; I25.10 Atherosclerotic heart disease of native coronary artery without angina pectoris; I25.2 Old myocardial infarction; I10 Essential (primary) hypertension; K21.9 Gastro-esophageal reflux disease without esophagitis; Z95.0 Presence of cardiac pacemaker
CPT/HCPCS: 36415; 71045; 87426

== ENCOUNTER 2022-02-12 03:51 | Emergency (ER) | payer OTHER ==
[~2022-02-12] VITALS: Ht 190.5 cm; Wt 104.1 kg
[2022-02-12 09:27] VITALS: BP 130/72
[2022-02-12] MEDS ORDERED: AZITTAB PO (10:23)
== END 2022-02-12 11:04 | disposition home or self-care (01) ==
LOC: ER 03:51
DX: J06.9 Acute upper respiratory infection, unspecified (principal); I10 Essential (primary) hypertension; I25.10 Atherosclerotic heart disease of native coronary artery without angina pectoris; K21.9 Gastro-esophageal reflux disease without esophagitis; I25.2 Old myocardial infarction; Z95.0 Presence of cardiac pacemaker; Z20.822 Contact with and (suspected) exposure to COVID-19
CPT/HCPCS: 36415; 71046; 87426; 87804

== ENCOUNTER 2022-02-15 18:12 | Emergency (ER) | payer OTHER ==
[~2022-02-15 18:12] MED LIST changes: +AZITTAB PO
[2022-02-15 18:47] VITALS: BP 135/90
[2022-02-15 19:01] LABS: Basophils # (auto) 0 10 ^3/uL (0-0.2); Basophils % (auto) 0.6 % (0.0-2.0); Eosinophils # (auto) 0.2 10 ^3/uL (0-0.8); Hematocrit 44.6 % (41.0-53.0); Hemoglobin 16.1 g/dL (13.5-17.5); Lymphocytes # (auto) 2.4 10 ^3/uL (0.4-5.4); Lymphocytes % (auto) 31.4 % (10.0-50.0); Mean Corpuscular Hemoglobin 30.3 pg (28.0-32.0); Mean Corpuscular Hgb Conc. 36.2 g/dL (32.0-36.0); Mean Corpuscular Volume 83.8 fL (80.0-100.0); Monocytes # (auto) 0.5 10 ^3/uL (0-1.3); Monocytes % (auto) 6.5 % (0.0-12.0); Neutrophils # (auto) 4.4 10 ^3/uL (1.6-8.6); Neutrophils % (auto) 58.5 % (37.0-80.0); Nucleated Red Blood Cells % 0.1 %; Red Blood Cells 5.32 10^6/uL (4.5-5.90); Red Cell Distribution Width 13.4 % (11.8-14.3); White Blood Cell 7.5 10^3/uL (4.4-10.8)
[2022-02-15 19:15] LABS: Albumin 4.4 g/dL (3.4-5.0); Calcium 8.9 mg/dL (8.5-10.1); Potassium 4.5 mmol/L (3.5-5.1)
[2022-02-15 19:17] LABS: INR 1.06 (0.9-1.15); Partial Thromboplastin Time 29.6 sec (24.6-33.4)
[2022-02-15 19:19] LABS: BUN/Creatinine Ratio 16.3; Bilirubin, Total 0.9 mg/dL (0.2-1.0); Total Protein 7.7 g/dL (6.4-8.2)
== END 2022-02-16 06:18 | disposition left against medical advice (07) ==
LOC: ER 18:12
DX: R00.2 Palpitations (principal); I48.91 Unspecified atrial fibrillation; I11.0 Hypertensive heart disease with heart failure; I50.9 Heart failure, unspecified; K21.9 Gastro-esophageal reflux disease without esophagitis; I25.2 Old myocardial infarction; Z79.899 Other long term (current) drug therapy; Z88.8 Allergy status to other drugs, medicaments and biological substances; Z20.822 Contact with and (suspected) exposure to COVID-19
CPT/HCPCS: 36415; 71045; 80053; 84484; 85025; 85610; 85730; 87426; 93005

== ENCOUNTER 2022-03-03 19:27 | Emergency (ER) | payer OTHER ==
[~2022-03-03] VITALS: Ht 190.5 cm; Wt 107.0 kg
[2022-03-03 20:25] LABS: Albumin 4.4 g/dL (3.4-5.0); Calcium 8.3 mg/dL (8.5-10.1); Potassium 4.1 mmol/L (3.5-5.1)
[2022-03-03 20:30] LABS: BUN/Creatinine Ratio 16.9; Total Protein 7.4 g/dL (6.4-8.2)
[2022-03-03 20:36] LABS: Basophils # (auto) 0 10 ^3/uL (0-0.2); Basophils % (auto) 0.7 % (0.0-2.0); Eosinophils # (auto) 0.4 10 ^3/uL (0-0.8); Hematocrit 41.1 % (41.0-53.0); Lymphocytes # (auto) 1.5 10 ^3/uL (0.4-5.4); Lymphocytes % (auto) 27.9 % (10.0-50.0); Mean Corpuscular Hemoglobin 30.6 pg (28.0-32.0); Mean Corpuscular Hgb Conc. 36.3 g/dL (32.0-36.0); Mean Corpuscular Volume 84.2 fL (80.0-100.0); Monocytes # (auto) 0.5 10 ^3/uL (0-1.3); Monocytes % (auto) 8.7 % (0.0-12.0); Neutrophils # (auto) 2.9 10 ^3/uL (1.6-8.6); Neutrophils % (auto) 55.7 % (37.0-80.0); Nucleated Red Blood Cells % 0.1 %; Red Blood Cells 4.89 10^6/uL (4.5-5.90); White Blood Cell 5.3 10^3/uL (4.4-10.8)
[2022-03-03 23:05] VITALS: BP 125/79
== END 2022-03-03 23:13 | disposition home or self-care (01) ==
LOC: ER 19:27
DX: R07.89 Other chest pain (principal); K21.9 Gastro-esophageal reflux disease without esophagitis; I10 Essential (primary) hypertension; I25.2 Old myocardial infarction; Z88.6 Allergy status to analgesic agent
CPT/HCPCS: 36415; 71045; 80053; 83880; 84484; 85025; 93005

== ENCOUNTER 2022-03-31 00:08 | Emergency (ER) | payer OTHER ==
[~2022-03-31] VITALS: Ht 190.5 cm; Wt 105.8 kg
[2022-03-31 00:44] VITALS: BP 139/84
[2022-03-31 01:03] LABS: Basophils # (auto) 0 10 ^3/uL (0-0.2); Basophils % (auto) 0.6 % (0.0-2.0); Eosinophils # (auto) 0.3 10 ^3/uL (0-0.8); Eosinophils % (auto) 4.6 % (0.0-7.0); Hematocrit 42.8 % (41.0-53.0); Hemoglobin 15.1 g/dL (13.5-17.5); Lymphocytes # (auto) 1.7 10 ^3/uL (0.4-5.4); Lymphocytes % (auto) 27.2 % (10.0-50.0); Mean Corpuscular Hemoglobin 30.2 pg (28.0-32.0); Mean Corpuscular Hgb Conc. 35.2 g/dL (32.0-36.0); Mean Corpuscular Volume 85.8 fL (80.0-100.0); Monocytes # (auto) 0.7 10 ^3/uL (0-1.3); Monocytes % (auto) 10.5 % (0.0-12.0); Neutrophils # (auto) 3.6 10 ^3/uL (1.6-8.6); Neutrophils % (auto) 57.1 % (37.0-80.0); Nucleated Red Blood Cells % 0.1 %; Red Blood Cells 4.99 10^6/uL (4.5-5.90); White Blood Cell 6.2 10^3/uL (4.4-10.8)
[2022-03-31 01:20] LABS: Albumin 4.3 g/dL (3.4-5.0); BUN/Creatinine Ratio 22.4; Calcium 9.1 mg/dL (8.5-10.1); Potassium 3.8 mmol/L (3.5-5.1)
[2022-03-31 01:30] LABS: Bilirubin, Total 0.7 mg/dL (0.2-1.0); Total Protein 7.7 g/dL (6.4-8.2)
[2022-03-31 02:41] LABS: Urine Bacteria NONE SEEN /hpf (None Seen); Urine Blood Negative /uL (Negative); Urine Specific Gravity 1.004 (1.001-1.035); Urine WBC <1 /hpf (0 - 3)
== END 2022-04-01 06:06 | disposition home or self-care (01) ==
LOC: ER 00:08
DX: R07.89 Other chest pain (principal); I10 Essential (primary) hypertension; E86.0 Dehydration; R79.89 Other specified abnormal findings of blood chemistry; I25.10 Atherosclerotic heart disease of native coronary artery without angina pectoris; K21.9 Gastro-esophageal reflux disease without esophagitis; Z98.890 Other specified postprocedural states; Z88.1 Allergy status to other antibiotic agents; Z79.899 Other long term (current) drug therapy
CPT/HCPCS: 36415; 71045; 80053; 81001; 84484; 85025; 93005